=== PATIENT | female | born 1945 | race Caucasian/White ===

== ENCOUNTER 2019-06-09 11:05 | Day surgery (SDC) | payer MEDICARE, OTHER ==
[~2019-06-09] VITALS: Ht 154.9 cm; Wt 87.0 kg
[~2019-06-09 11:05] MED LIST: ASPI81CH PO; ASPI81EC; CALCIUM 500-VI1 EAC1 PO; CALCIUM 500-VI1 EAC2 PO; FURO20 PO; HYDACE7.5 PO; IBUP200; LEVFLO500 PO; MEDR2.5 PO; METO50ER PO; OXYACE5T PO; POTA10T PO; PROM25 PO; RXPROM12.S PR; THERA1 EACH PO; VALS80 PO; XARELTO20 MG PO; [UNRECOGNIZED DRUG - OTHER] PO
--- NOTE | 2019-06-09 12:30 | NUR ---
DR OBANDO DISCCUSSED PROCEDURE WITH PT. PT HAS BEEN ON XARELTO SINCE GOING INTO AFIB WITH NO INTERRUPTIONS, KENNY NOT NEEDED; PT WILL ONLY HAVE CARDIOVERSION.
[2019-06-09] MEDS ORDERED: Amiodarone HCl200 MG PO (13:56)
--- NOTE | 2019-06-09 14:30 | NUR ---
PT DRESSED SELF WITHOUT ISSUE, IV REMOVED-CANNULA INTACT. PT AND DAUGHTER RECEIVED DISCHARGE INSTRUCTIONS, MED LIST AND "AFTER CARE" INSTRUCTIONS; VERBALIZED GOOD UNDERSTANDING. PT'S PRESCRIPTION WAS [facility] INTO [facility] PER PT'S REQUEST.
== END 2019-06-10 22:49 | disposition home or self-care (01) ==
LOC: MHTC 11:05
DX: I48.0 Paroxysmal atrial fibrillation (principal); I10 Essential (primary) hypertension; E66.9 Obesity, unspecified; Z88.2 Allergy status to sulfonamides; Z68.34 Body mass index [BMI] 34.0-34.9, adult; Z88.5 Allergy status to narcotic agent
CPT/HCPCS: 92960; 99152; J0282; J2250; J3010; J7030

== ENCOUNTER 2019-07-07 06:53 | Day surgery (SDC) | payer MEDICARE, OTHER ==
[~2019-07-07 06:53] MED LIST changes: +Amiodarone HCl200 MG PO
--- NOTE | 2019-07-07 07:36 | NUR ---
PT FOUND TO BE IN SINUS BRADYCARDIA ON THE [employer]LE [employer]. DR OBANDO NOTIFIED, INSTRUCTED PT TO STOP METOPROLOL AND FOLLOW UP IN THE CLINIC PLANNED ON June. EKG DONE, RESULTS TO DR OBANDO. PT DC'D HOME IN NO DISTRESS. WILL CALL THE OFFICE IF THERE ARE ANY QUESTIONS OR CONCERNS PER DR OBANDO'S INSTRUCTIONS.
== END 2019-07-07 23:27 | disposition home or self-care (01) ==
LOC: MHTC 06:53
DX: I48.91 Unspecified atrial fibrillation (principal); I36.1 Nonrheumatic tricuspid (valve) insufficiency; I11.9 Hypertensive heart disease without heart failure; E66.9 Obesity, unspecified; Z88.2 Allergy status to sulfonamides; Z88.8 Allergy status to other drugs, medicaments and biological substances; Z79.01 Long term (current) use of anticoagulants; Z79.899 Other long term (current) drug therapy; Z68.34 Body mass index [BMI] 34.0-34.9, adult
CPT/HCPCS: 93005; 93010

== ENCOUNTER 2019-07-28 08:34 | Day surgery (SDC) | payer MEDICARE, OTHER ==
[~2019-07-28] VITALS: Ht 154.9 cm; Wt 88.0 kg
[2019-07-28] MEDS ORDERED: CALCIUM 600 +1 EAC5 PO (09:09)
--- NOTE | 2019-07-28 15:04 | NUR ---
PT DRESSED, AMB TO BTR OK, IV DC'D INTACT, TR BANDS TAKEN OFF RADIAL/ULNAR ACCESS SITES, NO BLEED, DRESSINGS TO BOTH SITES, R WRIST SPLINT PLACED, PT DC'D BY WC WITH DAUGHTER AND GRANDAUGHTER TAKING PT HOME.
== END 2019-07-28 15:00 | disposition home or self-care (01) ==
LOC: MHTC 08:34
PROC: B201YZZ Plain Radiography of Multiple Coronary Arteries using Other Contrast (ICD-10-PCS; principal; 2019-07-28)
PROC: 4A023N7 Measurement of Cardiac Sampling and Pressure, Left Heart, Percutaneous Approach (ICD-10-PCS; principal; 2019-07-28)
DX: I25.10 Atherosclerotic heart disease of native coronary artery without angina pectoris (principal); E66.9 Obesity, unspecified; I11.9 Hypertensive heart disease without heart failure; Z88.2 Allergy status to sulfonamides; Z88.8 Allergy status to other drugs, medicaments and biological substances; Z79.899 Other long term (current) drug therapy; Z79.01 Long term (current) use of anticoagulants; Z68.34 Body mass index [BMI] 34.0-34.9, adult
CPT/HCPCS: 76937; 93454; 99152; 99153; C1769; C1894; J1644; J2250; J3010; J7030; Q9967

== ENCOUNTER 2021-03-07 18:47 | Emergency (ER) | payer MEDICARE, OTHER ==
[~2021-03-07] VITALS: Ht 152.4 cm; Wt 88.0 kg
[~2021-03-07 18:47] MED LIST changes: +CALCIUM 600 +1 EAC5 PO
[2021-03-07 19:33] LABS: BASOPHILS ABSOLUTE AUTO 0.04 K/mm3 (0.00-0.23); BASOPHILS PERCENT AUTO 1 % (0-2); EOSINOPHILS ABSOLUTE AUTO 0.08 K/mm3 (0.00-0.68); EOSINOPHILS PERCENT AUTO 1 % (0-6); Hematocrit 45.1 % (33.0-51.0); Hemoglobin 14.5 g/dL (11.5-16.0); IMMATURE GRAN ABSOLUTE AUTO 0.01 K/mm3 (0.00-0.10); IMMATURE GRAN PERCENT AUTO 0 % (0-1); LYMPHOCYTES ABSOLUTE AUTO 3.03 K/mm3 (0.84-5.20); LYMPHOCYTES PERCENT AUTO 40 % (21-46); MONOCYTES ABSOLUTE AUTO 0.83 K/mm3 (0.16-1.47); MONOCYTES PERCENT AUTO 11 % (4-13); Mean Corpuscular HGB Conc 32.2 g/dL (31.5-36.5); Mean Corpuscular Volume 96 fL (80-100); Mean Platelet Volume 9.1 fL (9.1-12.4); NEUTROPHILS ABSOLUTE AUTO 3.52 K/mm3 (1.96-9.15); NEUTROPHILS PERCENT AUTO 47 % (41-73); Platelet Count 408 K/mm3 (150-400); RDW Coefficient Variation 15.4 % (11.7-14.2); RDW Standard Deviation 54.9 fL (35.1-46.3); Red Blood Cell Count 4.68 M/mm3 (3.80-5.20); White Blood Cell Count 7.51 K/mm3 (4.00-11.30)
[2021-03-07 20:00] LABS: Alanine Aminotransfer (ALT/SGP 38 U/L (12-78); Albumin, Blood 3.6 g/dL (3.4-5.0); Albumin/Globulin Ratio 0.8 (0.8-1.8); Alk Phos 42 U/L (50-136); Anion Gap 9 mmol/L (6-16); Aspartate Aminotrans (AST/SGOT 30 U/L (12-37); Bilirubin, Total 0.6 mg/dL (0.1-1.0); Blood Urea Nitrogen 17 mg/dL (8-24); Bun/Creatinine Ratio 16.7 (12.0-20.0); CO2, Blood 22 mmol/L (21-32); Calcium, Blood 8.6 mg/dL (8.5-10.1); Chloride, Blood 109 mmol/L (98-108); Creatinine, Blood 1.02 mg/dL (0.40-1.00); Globulin, Blood 4.4 g/dL (2.2-4.0); Glomerular Filtration Rate 53 (60-); Glucose, Blood 89 mg/dL (70-99); Potassium, Blood 4.2 mmol/L (3.5-5.5); Sodium, Blood 140 mmol/L (136-145); Troponin I <0.015 ng/mL (0.000-0.040)
== END 2021-03-07 23:41 | disposition home or self-care (01) ==
LOC: ER 18:47
PROVIDERS: Physician Assistant
DX: U07.1 COVID-19 (principal); I11.0 Hypertensive heart disease with heart failure; I50.9 Heart failure, unspecified; I48.0 Paroxysmal atrial fibrillation; Z88.2 Allergy status to sulfonamides; Z88.5 Allergy status to narcotic agent; Z79.899 Other long term (current) drug therapy
CPT/HCPCS: 36415; 71045; 80053; 83880; 84484; 85025; 93005; 93010; 99285-25; A9270; M0243; Q0243

== ENCOUNTER 2021-07-23 07:21 | Day surgery (SDC) | payer MEDICARE, OTHER ==
[~2021-07-23] VITALS: Ht 152.4 cm; Wt 89.2 kg
--- NOTE | 2021-07-23 10:00 | NUR ---
07/23/[address] IN ROOM AT 0826. CORRECT PT, SITE, PROCEEDURE AND ALLERGIES CONFIRMED. PT ELECTED TO PROCEED. PT TOLERATED WELL.
== END 2021-07-23 09:21 | disposition home or self-care (01) ==
LOC: ORSCSDS 07:21
PROVIDERS: Orthopaedic Surgery
PROC: 0LN70ZZ Release Right Hand Tendon, Open Approach (ICD-10-PCS; principal; 2021-07-23 08:30)
DX: M65.331 Trigger finger, right middle finger (principal); I10 Essential (primary) hypertension; I48.0 Paroxysmal atrial fibrillation; E78.5 Hyperlipidemia, unspecified; E66.9 Obesity, unspecified; Z68.39 Body mass index [BMI] 39.0-39.9, adult; Z79.01 Long term (current) use of anticoagulants; Z79.899 Other long term (current) drug therapy
CPT/HCPCS: J0690; J7120

== ENCOUNTER 2025-03-06 06:34 | Day surgery (SDC) | payer MEDICARE, OTHER ==
[~2025-03-06] VITALS: Ht 152.4 cm; Wt 74.4 kg
[~2025-03-06 06:34] MED LIST changes: +AMLO5 PO; +ATOR20 PO; +Balanced Salt Epinephrine Irrigation Solution 500 mL IR SCH; +Moxifloxacin HCL 0.5 MG/0.1 ML 0.4MLSYR RIGHTEYE SCH; +OYSTER SHELL 51 EAC2 PO; +Ondansetron 4 MG SoluTab MM PRN; +PARO10 PO; +PHENYLEPHRINE\\TROPICAMIDE\\TETRACAINE OPHTHALMIC DILATING SOLN RIGHTEYE PRN; +POTCHL20ER PO; +Povidone-Iodine 450 DROP/30 ML Solution ONE; +Povidone-Iodine 450 DROP/30 ML Solution RIGHTEYE SCH; +SPIR25 PO; +Tetracaine HCl/Pf 0.5% Opth Soln 4 ml ONE; +VALSARTAN40 MG PO
--- NOTE | 2025-03-06 07:32 | NUR ---
03/06/25 0732 Ree Bates UPON TAKING PTS VS IT WAS NOTED THAT HER HR WAS RANGING BETWEEN 100-138. 3 LEAD WAS PLACED AND SHOWED PT WAS IN AFIB. DR BERRY INFORMED. PER DR BERRY SHE WOULD LIKE TO PROCEED WITH PROCEDURE HOWEVER ADD SUPPORT FROM ANESTHESIA TO PT CARE.
[2025-03-06] MEDS ORDERED: NS 500 ML IV ONE ×3 (07:50→08:27)
[2025-03-06] MEDS ORDERED: Midazolam HCl 1MG / ML 2ML Vial ONE (07:55)
--- NOTE | 2025-03-06 08:43 | NUR ---
03/06/25 0843 Soolmon Jesus CRNA APPROVED D/C WITH CURRENT HR, PER CIRCULATING DAJA SCHWARTZ . PT DENIED CP, DIZZINESS, SOB, AND OTHER SYMPTOMS. SHE STATES SHE IS BEING TREATED FOR A-FIB.
[2025-03-06 08:48] VITALS: BP 117/81
== END 2025-03-06 08:27 | disposition home or self-care (01) ==
LOC: ORSCSDS 06:34
PROVIDERS: Student in an Organized Health Care Education/Training Program
PROC: 08RJ3JZ Replacement of Right Lens with Synthetic Substitute, Percutaneous Approach (ICD-10-PCS; principal; 2025-03-06 08:00)
DX: H25.813 Combined forms of age-related cataract, bilateral (principal); H21.81 Floppy iris syndrome; I48.0 Paroxysmal atrial fibrillation; H35.3131 Nonexudative age-related macular degeneration, bilateral, early dry stage; N18.30 Chronic kidney disease, stage 3 unspecified; I12.9 Hypertensive chronic kidney disease with stage 1 through stage 4 chronic kidney disease, or unspecified chronic kidney disease; E78.5 Hyperlipidemia, unspecified; Z79.899 Other long term (current) drug therapy
CPT/HCPCS: A9270; J2003; J2250; J7040; V2632

== ENCOUNTER 2025-03-13 08:30 | Day surgery (SDC) | payer MEDICARE, OTHER ==
[~2025-03-13] VITALS: Ht 152.4 cm; Wt 74.4 kg
[~2025-03-13 08:30] MED LIST changes: +Moxifloxacin HCL 0.5 MG/0.1 ML 0.4MLSYR LEFTEYE SCH; -Moxifloxacin HCL 0.5 MG/0.1 ML 0.4MLSYR RIGHTEYE SCH; +NS 500 ML IV ONE; -Ondansetron 4 MG SoluTab MM PRN; +PHENYLEPHRINE\\TROPICAMIDE\\TETRACAINE OPHTHALMIC DILATING SOLN LEFTEYE PRN; -PHENYLEPHRINE\\TROPICAMIDE\\TETRACAINE OPHTHALMIC DILATING SOLN RIGHTEYE PRN; +Povidone-Iodine 450 DROP/30 ML Solution LEFTEYE SCH; -Povidone-Iodine 450 DROP/30 ML Solution RIGHTEYE SCH
--- NOTE | 2025-03-13 09:05 | NUR ---
03/13/25 0905 Ree BatesCAINE IN AT 0850 PLEDGETT IN AT 0851 PT TOLERATED WELL CALL LIGHT IN REACH
[2025-03-13] MEDS ORDERED: NS 500 ML IV ONE (09:07)
[2025-03-13] MEDS ORDERED: Midazolam HCl 1MG / ML 2ML Vial ONE (09:29)
--- NOTE | 2025-03-13 09:48 | NUR ---
03/13/25 0948 ROSE HALL INFORMED WHEN PT BROUGHT INTO SDU, PT HAS HX OF AFIB AND HAD AFIB IN OR.
[2025-03-13 09:49] VITALS: BP 115/87
== END 2025-03-13 10:02 | disposition home or self-care (01) ==
LOC: ORSCSDS 08:30
PROVIDERS: Student in an Organized Health Care Education/Training Program
PROC: 08RK3JZ Replacement of Left Lens with Synthetic Substitute, Percutaneous Approach (ICD-10-PCS; principal; 2025-03-13 10:00)
DX: H25.812 Combined forms of age-related cataract, left eye (principal); Z96.1 Presence of intraocular lens; H21.81 Floppy iris syndrome; I48.91 Unspecified atrial fibrillation; Z79.01 Long term (current) use of anticoagulants; I12.9 Hypertensive chronic kidney disease with stage 1 through stage 4 chronic kidney disease, or unspecified chronic kidney disease; N18.30 Chronic kidney disease, stage 3 unspecified; Z79.899 Other long term (current) drug therapy
CPT/HCPCS: J2250; J7040; V2632